=== PATIENT | female | born 1985 | race Caucasian/White ===

== ENCOUNTER 2017-01-20 04:50 | Inpatient (IN) | payer MEDICAID ==
[2017-01-20 05:19] LABS: % BASOPHILS 0.5 % (0.0-2.0); % EOSINOPHILS 2.5 % (0.0-5.0); % LYMPHOCYTES 29.2 % (20.0-50.0); % MONOCYTES 13.1 % (2.0-10.0); % NEUTROPHILS 54.7 % (40.0-80.0); HEMATOCRIT 46.7 % (41.0-60); HEMOGLOBIN 15.7 gm/dL (12-16); MEAN CELL VOLUME 89.2 fl (81-100); MEAN CORPUSCULAR HEMOGLOBIN 29.9 pg (27.0-31.0); MEAN CORPUSCULAR HGB CONC 33.6 pg (28.0-36.0); MEAN PLATELET VOLUME 9.2 fl; PLATELET COUNT 278 Th/cmm (150-400); RED BLOOD COUNT 5.24 Mil/cmm (3.80-5.10); RED CELL DISTRIBUTION WIDTH 12.7 % (11.5-20.0); WHITE BLOOD COUNT 9.1 Th/cmm (4.8-10.8)
[2017-01-20 05:35] LABS: ANION GAP 8.6 (7.0-16.0); BUN - UREA NITROGEN 15 mg/dL (7-25); BUN/CREATININE RATIO 21.4; CALCIUM SERUM 9.3 mg/dL (8.6-10.3); CARBON DIOXIDE 26.7 mEq/L (21.0-31.0); CHLORIDE 102 mEq/L (98-107); CREATININE - SERUM 0.7 mg/dL (0.6-1.2); GLUCOSE 95 mg/dL (70-105); POTASSIUM SERUM 3.3 mEq/L (3.5-5.1); SODIUM SERUM 134 mEq/L (136-145)
[2017-01-20] MEDS ORDERED: 0.9% NS w/20 mEq KCL 1,000 ML IV ONE ×2 (05:46→05:52)
[2017-01-20] MEDS ORDERED: Morphine Sulfate 4 mg/mL 1mL Syr IVP STA (05:58)
[2017-01-20] MEDS ORDERED: Morphine Sulfate 2 mg/mL 1mL Syr IVP STA (05:58)
[2017-01-20] MEDS ORDERED: Morphine Sulfate 2 mg/mL 1mL Syr ONE (05:59)
[2017-01-20 07:02] LABS: URINE BILIRUBIN NEGATIVE (NEGATIVE); URINE BLOOD SMALL (NEGATIVE); URINE GLUCOSE (UA) NEGATIVE (NEGATIVE); URINE KETONE NEGATIVE (NEGATIVE); URINE PROTEIN NEGATIVE (NEGATIVE); URINE UROBILINOGEN 0.2 E.U./dL (0.2 - 1.0)
[2017-01-20 07:06] LABS: URINE COLOR YELLOW
[2017-01-20 07:10] LABS: URINE BACTERIA FEW /hpf (NONE SEEN); URINE EPITHELIAL CELLS MODERATE /lpf (FEW)
[2017-01-20 07:11] LABS: URINE AMORPHOUS SEDIMENT MODERATE PHOSPHATES (NONE SEEN)
[2017-01-20] MEDS ORDERED: Piperacillin Sodium/Tazobact 3.375 gm Vial IV ONE (07:38)
--- NOTE | 2017-01-20 08:08 | ED Physician Chart ---
ED Chief Complaint/HPI - Patient Information Date Seen:: 01/20/17 Time Seen:: 06:30 Chief Complaint:: RUQ pain for 2 days History of Present Illness:: 31 yo female developed RUQ abdominal pain for 2 days. One day ago, the pain worsened with radiation to the back. The patient vomited 3 times before presented to the ER. She denies any fever or chills. Allergies:: Allergies Allergy/AdvReac Type Severity Reaction Status Date / Time No Known Allergies Allergy Verified 01/20/17 04:53 Vitals:: Vital Signs - 8 hr 01/20/17 04:53 Temp 97.5 F HR 68 RR 18 BP 113/80 O2 Sat % 100 ED Review of Systems - Review of Systems General/Constitutional: No fever, No chills Skin: No skin lesions Head: No headache Eyes: No loss of vision ENT: No earache Neck: No neck pain Cardio Vascular: No chest pain Pulmonary: No SOB GI: Nausea, Vomiting Musculoskeletal: No bone or joint pain Endocrine: No polyuria Psychiatric: No prior psych history ED Past Medical History - Past Medical History Obtainable: Yes Past Medical History: No significant medical hx Family History: Diabetes Melitus Social History: Non Smoker, Alcohol (occasionally), No Drug Use Surgical History: None Psychiatricy History: None ED Physical Exam - Physical Examination General/Constitutional: Well-developed, well-nourished, Alert Head: Atraumatic Eyes: PERRL, EOMI Skin: No rash ENMT: External ears, nose nl Neck: Full ROM w/o pain Respiratory: Clear to Auscultation, No Wheeze/Rhonchi/Rales Cardio Vascular: No murmur, gallop, rubs Other GI comments:: RUQ tenderness with positive Lee's sign. Abdomen is soft with mild guarding. Extremities: Full ROM, normal strength in all extremities Neuro/Psych: No focal deficits ED Labs/Radiology/EKG Results - Lab Results Results: Laboratory Tests 01/20/17 01/20/17 01/20/17 05:00 05:00 05:00 WBC 9.1 RBC 5.24 H Hgb 15.7 Hct 46.7 MCV 89.2 MCH 29.9 MCHC Differential 33.6 RDW 12.7 Plt Count 278 MPV 9.2 Neutrophils % 54.7 Lymphocytes % 29.2 Monocytes % 13.1 H Eosinophils % 2.5 Basophils % 0.5 Sodium 134 L Potassium 3.3 L Chloride 102 Carbon Dioxide 26.7 Anion Gap 8.6 BUN 15 Creatinine 0.7 Est GFR ( Amer) > 60.0 Est GFR (Non-Af Amer) > 60.0 BUN/Creatinine Ratio 21.4 Glucose 95 Calcium 9.3 Amylase Lipase 20 Serum , Qual Urine Source Urine Color Urine Clarity Urine pH Ur Specific [place] Urine Protein Urine Glucose (UA) Urine Ketones Urine Blood Urine Nitrate Urine Bilirubin Urine Urobilinogen Ur Leukocyte Esterase Urine RBC Urine WBC Ur Epithelial Cells Amorphous Sediment Urine Bacteria 01/20/17 01/20/17 01/20/17 05:00 05:00 05:06 WBC RBC Hgb Hct MCV MCH MCHC Differential RDW Plt Count MPV Neutrophils % Lymphocytes % Monocytes % Eosinophils % Basophils % Sodium Potassium Chloride Carbon Dioxide Anion Gap BUN Creatinine Est GFR ( Amer) Est GFR (Non-Af Amer) BUN/Creatinine Ratio Glucose Calcium Amylase 33 Lipase Serum , Qual NEGATIVE Urine Source CLEAN C Urine Color YELLOW Urine Clarity HAZY Urine pH 8.0 Ur Specific [place] 1.015 Urine Protein NEGATIVE Urine Glucose (UA) NEGATIVE Urine Ketones NEGATIVE Urine Blood SMALL H Urine Nitrate NEGATIVE Urine Bilirubin NEGATIVE Urine Urobilinogen 0.2 Ur Leukocyte Esterase TRACE H Urine RBC 2-5 Urine WBC 2-5 Ur Epithelial Cells MODERATE Amorphous Sediment MODERATE PHOSPHATES Urine Bacteria FEW ED Assessment - Assessment General Assessment: 31 yo female has biliary colic secondary to cholelithiasis/cholecystitis. Critical Care Time: 45 min Excludes all billable procedures: Yes This condition life threatening/high prob of deterioration: No Assessment/Comments:: NPO, Zosyn, pain control, admission to med surg. ED Septic Shock - . Is Septic Shock (SBP<90, OR Lactate>4 mmol\L) present?: No - <6hrs of presentation: Vital Signs: Vital Signs - 8 hr 01/20/17 04:53 Temp 97.5 F HR 68 RR 18 BP 113/80 O2 Sat % 100 ED Reassessment (Disposition) - Reassessment Reassessment Condition:: Improved - Aftercare/Follow up Instructions Aftercare/Follow-Up Instructions:: Counseled pt & family regarding lab results/ diagnosis & need follow up - Patient Disposition Discharge/Transfer:: Acute Care w/in this hosp ED Discharge Plan - Patient Disposition Admit/Discharge/Transfer: Acute Care w/in this hosp Condition at Disposition: Improved
[2017-01-20] MEDS ORDERED: Morphine Sulfate 2 mg/mL 1mL Syr IVP PRN (08:16)
--- NOTE | 2017-01-20 08:20 | Diagnostic Imaging Report ---
Exam: Ultrasound examination of the abdomen. HISTORY: Abdominal pain Findings: Real-time ultrasound examination the abdomen performed multiple planes. The study demonstrates a normal echogenicity liver parenchyma. The gallbladder contains a calculus measuring 2.1 cm diameter with sludge. The common bile duct is dilated up to 7 mm The pancreas poorly seen. There is no evidence of for nephrolithiasis. Right kidney measures 10.9 x 4.3 x 4.5 cm Left kidney measures 11.1 x 5.8 x 5.4 cm diameter. There is evidence for left-sided hydronephrosis. Clinical correlation recommended. The spleen is intact. No free fluid is noted. IMPRESSION: 1. Cholelithiasis, 2.1 cm calculus the most dependent portion of gallbladder surrounding with sludge. 2. Distention of common bile duct up to 7 mm. 3. Left-sided hydronephrosis.
[2017-01-20 11:14] LABS: ALB/GLOB RATIO 1.4 (1.0-1.8); BILIRUBIN,DIRECT 0.14 mg/dL (0.0-0.2); BILIRUBIN,TOTAL 0.3 mg/dL (0.3-1.0)
[2017-01-20] MEDS: D5-0.9NS w/KCL 20mEq 1,000 ML IV SCH (15:25)
[2017-01-20] MEDS: Ampicillin Sodium/Sulbactam 3 GM in Sodium Chloride 0.9% 100 ML IV SCH (18:18)
--- NOTE | 2017-01-20 20:07 | Consultation ---
DATE OF CONSULTATION: 01/20/2017 REASON FOR CONSULTATION: Abdominal pain. HISTORY OF PRESENT ILLNESS: This consult was obtained through the courtesy of Dr. Gamez for this 31-year-old with insignificant past medical history presenting with 2 days' duration of abdominal pain. Pain was in right upper quadrant, radiating to the back, accompanied by nausea. Pain was 10/10. Came to the hospital with some morphine. Now, pain is better. Pain got worse overnight. The patient has been present more than 10 years ago. She could not remember if she had similar episodes before or not. PAST MEDICAL HISTORY: Negative. PAST SURGICAL HISTORY: Negative. SOCIAL HISTORY: Nonsmoker. Drinks alcohol on social and infrequent occasions. Non-IV drug abuser. FAMILY HISTORY: Noncontributory. ALLERGIES: No known drug allergies. MEDICATIONS: None. REVIEW OF SYSTEMS: No weight loss. No hematemesis, melena, or hematochezia. PHYSICAL EXAMINATION: GENERAL: The patient is awake, oriented to self, place, and time, in moderate distress secondary to pain. VITAL SIGNS: Blood pressure is 107/73, heart rate 66, respiratory rate 20, and temperature 98.4. HEAD AND NECK: Pupils are reactive to light and accommodation. Extraocular muscles are intact. Sclerae are anicteric. Conjunctivae not pale. Oral cavity, no lesion. NECK: Supple, no jugular venous distention, no carotid bruit or lymph node. CHEST: Good respiratory movements. LUNGS: Clear to auscultation. CARDIOVASCULAR: Regular rate and rhythm. No murmur or gallop. ABDOMEN: Soft and obese. Positive bowel sounds. Mild right upper quadrant tenderness. EXTREMITIES: No edema. CENTRAL NERVOUS SYSTEM: Nonfocal. LABORATORY DATA: White count was normal. CBC unremarkable. Chemistry showed low potassium, but normal liver enzymes, normal lipase. Ultrasound showed cholelithiasis was 2.1 cm stone in the gallbladder with some sludge and common bile duct was 7 mm and left-sided hydronephrosis. IMPRESSION: This is a 31-year-old presenting with abdominal pain consistent with cholecystitis. Other differential might be pancreatitis even though less likely with normal lipase or peptic ulcer disease or gastritis or irritable bowel syndrome even though all of this are less likely. RECOMMENDATIONS: 1. Surgical consultation. 2. Recheck labs in the morning including liver enzymes and lipase. 3. HIDA scan. 4. If HIDA scan is positive, then consider surgery. On the other hand, if HIDA scan is negative and labs remain normal, consider upper endoscopy first. Also, if there is abnormal liver enzymes, consider MRCP. Thank you Dr. Gamez for allowing me to participate in the care of the patient. If you have any further questions, please let me know. JOB# [id number] [email or web address]
[2017-01-21] MEDS: Ampicillin Sodium/Sulbactam 3 GM in Sodium Chloride 0.9% 100 ML IV SCH ×4 (00:39→17:27)
[2017-01-21 05:30] LABS: % BASOPHILS 0.2 % (0.0-2.0); % EOSINOPHILS 3.5 % (0.0-5.0); % LYMPHOCYTES 44.4 % (20.0-50.0); % MONOCYTES 13.3 % (2.0-10.0); % NEUTROPHILS 38.6 % (40.0-80.0); HEMATOCRIT 41.5 % (41.0-60); HEMOGLOBIN 14.3 gm/dL (12-16); MEAN CELL VOLUME 88.9 fl (81-100); MEAN CORPUSCULAR HEMOGLOBIN 30.6 pg (27.0-31.0); MEAN CORPUSCULAR HGB CONC 34.4 pg (28.0-36.0); NEUTROPHILE ABSOLUTE 2.8 Th/cmm (1.8-8.0); PLATELET COUNT 248 Th/cmm (150-400); RED BLOOD COUNT 4.67 Mil/cmm (3.80-5.10); RED CELL DISTRIBUTION WIDTH 12.3 % (11.5-20.0)
[2017-01-21 05:36] LABS: WHITE BLOOD COUNT 7.2 Th/cmm (4.8-10.8)
[2017-01-21 05:38] LABS: ALB/GLOB RATIO 1.1 (1.0-1.8); ALKALINE PHOSPHATASE 53 U/L (34-104); ANION GAP 7.4 (7.0-16.0); BILIRUBIN,TOTAL 0.6 mg/dL (0.3-1.0); BUN - UREA NITROGEN 12 mg/dL (7-25); CALCIUM SERUM 8.3 mg/dL (8.6-10.3); CARBON DIOXIDE 26.1 mEq/L (21.0-31.0); CHLORIDE 106 mEq/L (98-107); CREATININE - SERUM 0.6 mg/dL (0.6-1.2); GLUCOSE 100 mg/dL (70-105); LIPASE 14 U/L (11-82); POTASSIUM SERUM 3.5 mEq/L (3.5-5.1); SGOT 21 U/L (13-39); SGPT/ALT 28 U/L (7-52); SODIUM SERUM 136 mEq/L (136-145)
[2017-01-21 05:39] LABS: CHOLESTEROL 102 mg/dL (<200); TRIGLYCERIDES 114 mg/dL (<150)
--- NOTE | 2017-01-21 08:28 | Diagnostic Imaging Report ---
Exam: HIDA scan HISTORY: Gallstones Findings: Utilizing 5.9 mCi of technetium 99 Choletec examination liver and biliary G was obtained. No prior studies available for comparison. Correlation was made with the previous ultrasound examination of the abdomen on 01/20/2017. The study demonstrates normal uptake over the right midcervical throughout the liver parenchyma. The common bile duct is normal with normal progression of radiopharmaceutical into the small bowel loops. The gallbladder is not visualized on delayed examination consistent with cystic duct obstruction. IMPRESSION: Nonvisualized gallbladder suggestive of cystic duct obstruction, cholecystitis cannot be excluded clinical correlation recommended.
[2017-01-21] MEDS ORDERED: Magnesium Citrate 1.75 GM/300 mL Bottle PO ONE (10:29)
[2017-01-21] MEDS: D5-0.9NS w/KCL 20mEq 1,000 ML IV SCH (16:48)
--- NOTE | 2017-01-21 17:24 | History & Physical ---
ADMIT DATE: 01/20/2017 HISTORY OF PRESENT ILLNESS: A 31-year-old -[place] female with no significant past medical history, moderately overweight, brought herself to the Emergency Room for evaluation of 4 days' history of abdominal discomfort followed by nausea, vomiting, and diarrhea and back pain. When the patient was worked up in the Emergency Room noted to have cholelithiasis. The patient was admitted with a diagnosis of cholecystitis. The patient was initially admitted by Dr. Lu and subsequently service is switched to de after patient belongs to the [facility]. PAST MEDICAL HISTORY: None. MEDICATIONS AT HOME: None. ALLERGIES: None. SOCIAL HISTORY: She works as a dental bilingual medical assistant. The patient has no smoking cigarette, alcohol abuse or drug use. FAMILY MEDICAL HISTORY: Remarkable for diabetes, hypertension. MENSTRUAL AND ELECTRICAL ENGINEERING DIRECTOR HISTORY: Her periods are regular. She is 2, para 2. REVIEW OF SYSTEMS: The patient currently denies any headache, blurred vision, double vision, dysphagia, odynophagia, runny nose, stuffy nose, fever, chills, cough, chest pain, shortness of breath, palpitation, dizziness, nausea, vomiting, diarrhea, dysuria, hematuria, hematochezia, melena. No seizure or syncopal episode. PHYSICAL EXAMINATION: GENERAL: The patient is alert, awake, oriented, lying in the bed without any acute distress. VITAL SIGNS: Temperature 98.4, pulse is 60, respiratory rate 18, blood pressure 100/66. SKIN: Warm to touch. HEENT: Normocephalic, atraumatic. Extraocular muscles are intact. Tongue was pink and coated. Poor dentition noted. NECK: Supple, no JVD, no hepatojugular reflex. No lymphadenopathy, thyromegaly or carotid bruit. HEART: Both heart sounds are regular. No S3, no S4, no murmur. CHEST: Lung equal in expansion . EXTREMITIES: No edema, no cyanosis, no clubbing. Pulses are +2. No calf tenderness noted. NEUROLOGIC: Nonfocal. AVAILABLE DIAGNOSTIC DATA: CBC is within normal limit. Chemistry panels are normal limit. Amylase and lipase are normal. Urinalysis, trace blood, trace leukocyte esterase, otherwise unremarkable. Serum test are negative, HIDA scan was done which is positive for cystic duct obstruction, abdominal ultrasound consistent with cholelithiasis. CLINICAL IMPRESSION: 1. Symptomatic gallstones with cholecystitis, need surgical intervention. 2. Overweight. PLAN: The patient was admitted by Dr. Lu. The patient will be kept n.p.o., IV fluid, IV antibiotic. GI and General Surgery consultations and 4 laparoscopic cholecystectomy. The patient will have symptoms management and medication management. The patient will follow the consult recommendations. Care plan reviewed and discussed with staff. [facility]# [id number]
[2017-01-22] MEDS: Ampicillin Sodium/Sulbactam 3 GM in Sodium Chloride 0.9% 100 ML IV SCH ×4 (00:18→18:17)
[2017-01-22 05:09] LABS: INR 1.03 (0.5-1.4); PROTHROMBIN TIME (TEST) 10.7 SECONDS (9.5-11.5)
[2017-01-22] MEDS ORDERED: Midazolam 1mg/ml 2 ml vial IV ONE (07:34)
[2017-01-22] MEDS ORDERED: Meperidine 50 mg/mL 1mL Syr ONE ×2 (07:45→09:05)
[2017-01-22] MEDS ORDERED: Bupivacaine 0.5% W/Ep 10 mL Vial ONE ×2 (07:55)
[2017-01-22] MEDS ORDERED: Neostigmine 10mg/10mL Vial ONE (08:23)
[2017-01-22 08:40] LABS: ALB/GLOB RATIO 1.2 (1.0-1.8); BILIRUBIN,DIRECT 0.15 mg/dL (0.0-0.2); BILIRUBIN,TOTAL 0.5 mg/dL (0.3-1.0)
[2017-01-22] MEDS ORDERED: Lactated Ringer 1,000 ML IV SCH (09:00)
--- NOTE | 2017-01-22 09:39 | Operative Report ---
DATE OF SURGERY: 01/22/2017 PREOPERATIVE DIAGNOSES: 1. Calculous cholecystitis. 2. Morbid obesity. POSTOPERATIVE DIAGNOSES: 1. Calculous cholecystitis. 2. Morbid obesity. OPERATION: Laparoscopic cholecystectomy. SURGEON: Neptali Pritchett M.D. BLENDING PLANT OPERATOR: Dr. Mayo. ANESTHESIA: General. ANESTHESIOLOGIST: Vita Lugo M.D. ESTIMATED BLOOD LOSS: 10 mL. OPERATIVE FINDINGS: Adhesions of omentum to the gallbladder, which had to be lysed. The colon on this side was visualized as well. PROCEDURE: The patient was given general anesthesia. The abdomen was prepped with ChloraPrep and draped in appropriate manner. An infraumbilical incision was made along the skin line. A Veress needle was inserted. Insufflation of CO2 was out carried successfully. A 10 mm trocar was placed through this incision. The scope was introduced ____. There was good visualization of the intra-abdominal cavity. A 10 mm trocar was placed in the upper abdomen at the midline and two 5 mm trocars were placed in the right flank. Adhesions to the gallbladder from the omentum were lysed. The fundus and infundibulum was grasped and blunt dissection was carried out at the infundibulum ____ tissues until the cystic duct structures were identified. These were clipped and divided. The gallbladder was dissected superiorly. Because of the adhesions of the omentum to the gallbladder at the fundus, EnSeal was used to transect these tissues. Gallbladder was removed in Endobag. Irrigation with saline solution was carried out and no bleeding site noted. The incision was closed with abiodun following removal of the trocars and injection of Marcaine to the trocar sites. The patient tolerated the procedure. JOB# [id number]
--- NOTE | 2017-01-22 09:57 | Consultation ---
DATE OF CONSULTATION: 01/21/2017 REFERRING PHYSICIAN: Dr. Gamez. REASON FOR CONSULTATION: Abdominal pain. Thank you for referring this patient to me. HISTORY OF PRESENT ILLNESS: This is a 31-year-old female admitted through ER because of 4-day history of abdominal pain in the right upper quadrant with nausea and vomiting. Ultrasound of the abdomen showed gallstones. HIDA scan was done and this showed nonvisualization of the gallbladder. PAST MEDICAL HISTORY: Unremarkable. SOCIAL HISTORY: She does not smoke or drink. He has had no previous history. She is slightly on the obese side. LABORATORY STUDIES: CBC was within normal limits as were the liver function tests. ____ is negative. PHYSICAL EXAMINATION: DICTATION ENDED HERE JOB# [id number]
--- NOTE | 2017-01-22 10:03 | Consultation ---
DATE OF CONSULTATION: 01/21/2017 REFERRING PHYSICIAN: Dr. Gamez. REASON FOR CONSULTATION: Abdominal pain. Thank you for referring this patient to me. HISTORY OF PRESENT ILLNESS: This is a 31-year-old moderately obese female who comes in because of 4-day history of abdominal pain, associated nausea and vomiting. In the Emergency Room, the patient underwent an ultrasound study, which showed gallstones. She was admitted and HIDA scan was done which showed nonvisualization of the gallbladder. LABORATORY STUDIES: Show the CBC to be normal. Chemistry including liver function tests also normal. PHYSICAL EXAMINATION: Tenderness in the right upper quadrant. Informed consent discussed with the patient including possible complications that might include among other things, bleeding, infection, bile leak and injury to the ____ DICTATION ENDED HERE JOB# [id number]
[2017-01-22] MEDS: Morphine Sulfate 2 mg/mL 1mL Syr IVP PRN ×2 (10:32→17:28)
[2017-01-22] MEDS ORDERED: Probiotic Screen MC PRN (12:00)
[2017-01-22 23:43] VITALS: BP 115/64
[2017-01-23] MEDS: Ampicillin Sodium/Sulbactam 3 GM in Sodium Chloride 0.9% 100 ML IV SCH ×3 (00:30→12:18)
[2017-01-23] MEDS: D5-0.9NS w/KCL 20mEq 1,000 ML IV SCH (02:16)
[2017-01-23 05:57] LABS: % BASOPHILS 0.3 % (0.0-2.0); % EOSINOPHILS 1.4 % (0.0-5.0); % LYMPHOCYTES 25.6 % (20.0-50.0); % MONOCYTES 10.7 % (2.0-10.0); HEMATOCRIT 42.3 % (41.0-60); HEMOGLOBIN 14.4 gm/dL (12-16); MEAN CELL VOLUME 88.9 fl (81-100); MEAN CORPUSCULAR HEMOGLOBIN 30.3 pg (27.0-31.0); MEAN CORPUSCULAR HGB CONC 34.1 pg (28.0-36.0); MEAN PLATELET VOLUME 8.7 fl; NEUTROPHILE ABSOLUTE 6.2 Th/cmm (1.8-8.0); PLATELET COUNT 268 Th/cmm (150-400); RED BLOOD COUNT 4.76 Mil/cmm (3.80-5.10); RED CELL DISTRIBUTION WIDTH 12.4 % (11.5-20.0)
[2017-01-23 06:01] LABS: WHITE BLOOD COUNT 9.9 Th/cmm (4.8-10.8)
[2017-01-23] MEDS ORDERED: Lactobacillus Rhamnosus 10 Billion CFU Capsule PO SCH (09:00)
--- NOTE | 2017-01-23 13:39 | General Progress Note ---
Subjective - Review of Systems Service Date: 01/23/17 Events since last encounter: labs ok may DC on low fat diet for 30 days to my office 1 week - call for appt Objective - Results Result Diagrams: 01/23/17 05:40 01/21/17 04:32 Recent Labs: Laboratory Last Values WBC 9.9 Th/cmm (4.8-10.8) D 01/23/17 05:40 RBC 4.76 Mil/cmm (3.80-5.10) 01/23/17 05:40 Hgb 14.4 gm/dL (12-16) 01/23/17 05:40 Hct 42.3 % (41.0-60) 01/23/17 05:40 MCV 88.9 fl (81-100) 01/23/17 05:40 MCH 30.3 pg (27.0-31.0) 01/23/17 05:40 MCHC Differential 34.1 pg (28.0-36.0) 01/23/17 05:40 RDW 12.4 % (11.5-20.0) 01/23/17 05:40 Plt Count 268 Th/cmm (150-400) 01/23/17 05:40 MPV 8.7 fl 01/23/17 05:40 Neutrophils % 62.0 % (40.0-80.0) 01/23/17 05:40 Lymphocytes % 25.6 % (20.0-50.0) 01/23/17 05:40 Monocytes % 10.7 % (2.0-10.0) H 01/23/17 05:40 Eosinophils % 1.4 % (0.0-5.0) 01/23/17 05:40 Basophils % 0.3 % (0.0-2.0) 01/23/17 05:40 PT 10.7 SECONDS (9.5-11.5) 01/22/17 04:30 INR 1.03 (0.5-1.4) 01/22/17 04:30 PTT (Actin FS) 24.2 SECONDS (26.0-38.0) L 01/22/17 04:30 Sodium 136 mEq/L (136-145) 01/21/17 04:32 Potassium 3.5 mEq/L (3.5-5.1) 01/21/17 04:32 Chloride 106 mEq/L (98-107) 01/21/17 04:32 Carbon Dioxide 26.1 mEq/L (21.0-31.0) 01/21/17 04:32 Anion Gap 7.4 (7.0-16.0) 01/21/17 04:32 BUN 12 mg/dL (7-25) 01/21/17 04:32 Creatinine 0.6 mg/dL (0.6-1.2) 01/21/17 04:32 Est GFR ( Amer) > 60.0 ml/min (>90) 01/21/17 04:32 Est GFR (Non-Af Amer) > 60.0 ml/min 01/21/17 04:32 BUN/Creatinine Ratio 20.0 01/21/17 04:32 Glucose 100 mg/dL (70-105) 01/21/17 04:32 POC Glucose 95 MG/DL (70 - 105) 01/22/17 05:42 Calcium 8.3 mg/dL (8.6-10.3) L 01/21/17 04:32 Total Bilirubin 0.5 mg/dL (0.3-1.0) 01/22/17 04:30 Direct Bilirubin 0.15 mg/dL (0.0-0.2) 01/22/17 04:30 AST 21 U/L (13-39) 01/22/17 04:30 ALT 32 U/L (7-52) 01/22/17 04:30 Alkaline Phosphatase 54 U/L (34-104) 01/22/17 04:30 Total Protein 6.0 gm/dL (6.0-8.3) 01/22/17 04:30 Albumin 3.3 gm/dL (3.7-5.3) L 01/22/17 04:30 Globulin 2.7 gm/dL 01/22/17 04:30 Albumin/Globulin Ratio 1.2 (1.0-1.8) 01/22/17 04:30 Triglycerides 114 mg/dL (<150) 01/21/17 04:32 Cholesterol 102 mg/dL (<200) 01/21/17 04:32 LDL Cholesterol Direct 66 mg/dL (75-193) L 01/21/17 04:32 HDL Cholesterol 25 mg/dL (23-92) 01/21/17 04:32 Amylase 33 U/L (29-103) 01/20/17 05:00 Lipase 14 U/L (11-82) 01/21/17 04:32 Serum , Qual NEGATIVE (NEGATIVE) 01/20/17 05:00 Urine Source CLEAN C 01/20/17 05:06 Urine Color YELLOW 01/20/17 05:06 Urine Clarity HAZY (CLEAR) 01/20/17 05:06 Urine pH 8.0 (4.6 - 8.0) 01/20/17 05:06 Ur Specific [place] 1.015 (1.005-1.030) 01/20/17 05:06 Urine Protein NEGATIVE mg/dL (NEGATIVE) 01/20/17 05:06 Urine Glucose (UA) NEGATIVE mg/dL (NEGATIVE) 01/20/17 05:06 Urine Ketones NEGATIVE mg/dL (NEGATIVE) 01/20/17 05:06 Urine Blood SMALL (NEGATIVE) H 01/20/17 05:06 Urine Nitrate NEGATIVE (NEGATIVE) 01/20/17 05:06 Urine Bilirubin NEGATIVE (NEGATIVE) 01/20/17 05:06 Urine Urobilinogen 0.2 E.U./dL (0.2 - 1.0) 01/20/17 05:06 Ur Leukocyte Esterase TRACE (NEGATIVE) H 01/20/17 05:06 Urine RBC 2-5 /hpf (0-5) 01/20/17 05:06 Urine WBC 2-5 /hpf (0-5) 01/20/17 05:06 Ur Epithelial Cells MODERATE /lpf (FEW) 01/20/17 05:06 Amorphous Sediment MODERATE PHOSPHATES (NONE SEEN) 01/20/17 05:06 Urine Bacteria FEW /hpf (NONE SEEN) 01/20/17 05:06 - Physical Exam Vitals and I&O: Vital Signs Temp 99.4 F 01/23/17 12:00 Pulse 65 01/23/17 12:00 Resp 19 01/23/17 12:00 BP 120/84 01/23/17 12:00 Pulse Ox 99 01/23/17 12:00 Intake & Output 01/22/17 01/23/17 01/23/17 18:59 06:59 18:59 Intake Total 100 200 100 Balance 100 200 100 Weight (lbs) 86.636 kg Intake: Intake, IV Amount 100 200 100 Ampicillin Sodium/ 100 200 100 Sulbactam 3 gm In Sodium Chloride 0.9% 100 ml @ 100 mls/hr IV Q6HR [facility] Rx #:[id number] Active Medications: Current Medications Potassium Chloride/Dextrose/Sod Cl (D5-0.9ns W/Kcl 20meq) 1,000 mls @ 75 mls/ hr IV .[id number] [facility] Stop: 03/21/17 08:13 Last Admin: 01/23/17 02:16 Dose: 75 mls/hr Ampicillin Sodium/Sulbactam (Sodium 3 gm/ Sodium Chloride) 100 mls @ 100 mls/ hr IV Q6HR [facility] Stop: 03/21/17 17:59 Last Admin: 01/23/17 12:18 Dose: 100 mls/hr Lactobacillus Rhamnosus (Culturelle) 1 each PO DAILY [facility] Stop: 03/24/17 08:59 Last Admin: 01/23/17 08:21 Dose: 1 each Miscellaneous (Probiotic Screen) 1 [facility] PRN PRN PRN Reason: PROTOCOL Stop: 03/23/17 11:59 Morphine Sulfate (Morphine) 1 mg IVP Q4HR PRN PRN Reason: Abdominal Pain Stop: 03/21/17 08:15 Last Admin: 01/22/17 20:40 Dose: 1 mg Morphine Sulfate (Morphine) 2 mg IVP Q6HR PRN PRN Reason: Pain (Severe) Stop: 03/21/17 10:33 Last Admin: 01/22/17 17:28 Dose: 2 mg Ondansetron HCl (Zofran) 4 mg IV Q6H PRN PRN Reason: Nausea / Vomiting Stop: 03/21/17 16:53 Pantoprazole Sodium (Protonix) 40 mg IVP DAILY [facility] Stop: 03/21/17 10:33 Last Admin: 01/23/17 08:21 Dose: 40 mg - Procedures Procedures: Procedures Procedure Code Date LAPAROSCOPIC CHOLECYSTECTOMY 51754 01/20/17 RESECTION OF GALLBLADDER, PERCUTANEOUS ENDOSCOPIC APPROACH [id number] 01/20/17
--- NOTE | 2017-01-25 14:17 | Pathology Report ---
[id number] Collection Date: 01/22/2017 Surgeon: Dr. Marisol Gunderson Specimen Description: Gallbladder Gross Description: Received in formalin is a 7 x 3.5 x 3.2 cm distended gallbladder with smooth, glistening, dark garcias outer surface. Opening the gallbladder reveals two yellowish-green gallstones measuring 1.7 and 2.2 cm in greatest dimension. The gallbladder mucosa has a velvety yellowish-green appearance with the gallbladder wall ranging from 0.1 to 0.2 cm in thickness. Machine Hoop Maker Helper sections are submitted in one cassette. Gross Pathologic Diagnosis: Cholelithiasis, gallbladder. Microscopic Description: The histologic sections show gallbladder wall and mucosa with chronic inflammation present consisting of lymphocytes and plasma cells. Diagnosis: Chronic cholecystitis, gallbladder. JOB# [id number]
== END 2017-01-23 15:00 | disposition home or self-care (01) | DRG 263 ==
LOC: ER 04:50 → MSI 10:05
PROVIDERS: ADMIT Internal Medicine; ATTEND Internal Medicine
PROC: 0FT44ZZ Resection of Gallbladder, Percutaneous Endoscopic Approach (ICD-10-PCS; principal; 2017-01-22)
DX: K80.10 Calculus of gallbladder with chronic cholecystitis without obstruction (principal); E66.01 Morbid (severe) obesity due to excess calories; E66.3 Overweight; Z68.29 Body mass index [BMI] 29.0-29.9, adult; Z83.3 Family history of diabetes mellitus
CPT/HCPCS: 36415-UA; 76700-TC; 78226-TC; 80048-TC; 80053-TC; 80061-TC; 80076-TC; 81001-TC; 82150-TC; 82948-90; 83690-TC; 84703-TC; 85025-TC; 85610-TC; 85730-TC; 88304-TC; 90799; 93005; 96372; 96375; A9537; C9113; J0295; J2001; J2250; J2270; J2405; J2543; J2704; J2710; J3480; J7030; V2790; X6024; X6258; Z7502; Z7610